=== PATIENT | male | born 1935 | race Caucasian/White ===

== ENCOUNTER 2017-12-20 07:01 | Day surgery (SDC) | payer MEDICARE, OTHER ==
[~2017-12-20] VITALS: Ht 180.3 cm; Wt 86.8 kg
[~2017-12-20 07:01] MED LIST: ASCO1ER; ASCO500 PO; CHOL10002; CRANBERRY; Coumadin7.5 MG PO; DOCU100 PO; ENOX40I SC; ERGO400 PO; FISH1000; FISH1000 PO; GLUCOSAMINE &1 EACH PO; HYDACE10B PO; HYDMOR4 PO; IRON325 MG PO; LEVFLO500 PO; MSM-GLUCOSAMIN1 EACH PO; MSM1500 MG PO; OMEP20ER PO; OXYACE5T PO; TART CHERRY; TRANDOLAPRIL; Tart Cherry Ca1 EACH PO; VALD20 PO; Vitamin C1000 M1; WARF1 PO; WARF2.5; WARF5 PO; WARF6; WARF7.5 PO; [UNRECOGNIZED DRUG - CODE] PO
== END 2017-12-20 09:00 | disposition home or self-care (01) ==
LOC: ORSCSDS 07:01
PROVIDERS: Ophthalmology
PROC: 08RJ3JZ Replacement of Right Lens with Synthetic Substitute, Percutaneous Approach (ICD-10-PCS; principal; 2017-12-20 08:30)
DX: H25.11 Age-related nuclear cataract, right eye (principal); E11.9 Type 2 diabetes mellitus without complications; Z86.718 Personal history of other venous thrombosis and embolism; Z79.01 Long term (current) use of anticoagulants
CPT/HCPCS: J2250; J3010; J3301; J7040; V2632

== ENCOUNTER 2018-01-24 06:09 | Day surgery (SDC) | payer MEDICARE, OTHER ==
[~2018-01-24] VITALS: Ht 172.7 cm; Wt 85.0 kg
== END 2018-01-24 08:04 | disposition home or self-care (01) ==
LOC: ORSCSDS 06:09
PROVIDERS: Ophthalmology
PROC: 08RK3JZ Replacement of Left Lens with Synthetic Substitute, Percutaneous Approach (ICD-10-PCS; principal; 2018-01-24 07:30)
DX: H25.12 Age-related nuclear cataract, left eye (principal); E11.9 Type 2 diabetes mellitus without complications; G47.30 Sleep apnea, unspecified; I82.409 Acute embolism and thrombosis of unspecified deep veins of unspecified lower extremity; Z79.01 Long term (current) use of anticoagulants; Z79.899 Other long term (current) drug therapy
CPT/HCPCS: J2250; J3010; J3301; J7040; V2632